=== PATIENT | female | born 1975 | race Caucasian/White ===

== ENCOUNTER 2025-06-18 10:56 | Outpatient (AMB) | payer OTHER, SELFPAY ==
--- NOTE | 2025-06-18 10:59 | MHC.PC.OV ---
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 screenings. Below are screening guidelines for women ages 18 to 39. BLOOD PRESSURE SCREENING Your blood pressure should be checked at least once every 3 to 5 years if: Your blood pressure is in the normal range (top number less than 120 mm Hg and bottom number less than 80 mm Hg) You don't have risk factors for high blood pressure Ask your provider if you need your blood pressure checked more often if: The top number is 120 to 129 mm Hg or the bottom number is 70 to 79 mm Hg You have diabetes, heart disease, kidney problems, are overweight, or have certain other health conditions You have a first-degree relative with high blood pressure You are Black You had high blood pressure during a If the top number is 130 mm Hg or greater or the bottom number is 80 mm Hg or greater, this is considered stage 1 hypertension. Schedule an appointment with your provider to learn how you can reduce your blood pressure. Watch for blood pressure screenings in your area. Ask your provider if you can stop in to have your blood pressure checked. BREAST CANCER SCREENING Experts do not agree about the benefits of breast self-exams in finding breast cancer or saving lives. Talk to your provider about what is best for you. A screening mammogram is not recommended for most women under age 40. Your provider may discuss and recommend mammograms, MRI scans, or ultrasounds if you have an increased risk for breast cancer, such as: A mother or sister who had breast cancer at a young age (most often starting screening earlier than the age the close relative was diagnosed) You carry a high-risk genetic marker CERVICAL CANCER SCREENING Cervical cancer screening should start at age 21 years unless your provider advises otherwise. After the first test: Women ages 21 through 29 should have a Pap test every 3 years. Exoprts do not agree on whether HPV testing is recommended for this age group. Women ages 30 through 65 should be screened with either a Pap test every 3 years or the HPV test every 5 years or both tests every 5 years (called cotesting ). Women who have been treated for precancer (cervical dysplasia) should continue to have Pap tests for 20 years after treatment or until age 65, whichever is longer. If you have had your uterus and cervix removed (total hysterectomy), and you have not been diagnosed with cervical cancer or precancer (high grade cervical neoplasia), you do not need cervical cancer screening. CHOLESTEROL SCREENING Cholesterol screening should begin at: Age 45 for women with no known risk factors for coronary heart disease Age 20 for women with known risk factors for coronary heart disease Repeat cholesterol screening should take place: Every 5 years for women with normal cholesterol levels More often if changes occur in lifestyle (including weight gain and diet) More often if you have diabetes, heart disease, kidney problems, or certain other conditions DIABETES SCREENING You should be screened for diabetes starting at age 35 and then repeated every 3 years if you have no risk factors for diabetes. Screening may need to start earlier and be repeated more often if you have other risk factors for diabetes, such as: You have a first degree relative with diabetes. You are overweight or have obesity. You have high blood pressure, prediabetes, or a history of heart disease. Screening for diabetes should be done if you are planning to become and you are overweight and have other risk factors such as high blood pressure. DENTAL EXAM Go to the dentist once or twice every year for an exam and cleaning. Your dentist will evaluate if you need more frequent visits. EYE EXAM Have an eye exam every 5 to 10 years before age 40. If you have vision problems, have an eye exam every 2 years or more often if recommended by your provider. You should have an eye exam that includes an examination of your retina (back of your eye) at least every year if you have diabetes. IMMUNIZATIONS Commonly needed vaccines include: Flu shot: get one every year. COVID-19 vaccine: ask your provider what is best for you. Tetanus-diphtheria and acellular pertussis (Tdap) vaccine: have one at or after age 19 as one of your tetanus-diphtheria vaccines if you did not receive it as an adolescent. Tetanus-diphtheria: have a booster (or Tdap) every 10 years. Varicella vaccine: receive 2 doses if you never had chickenpox or the varicella vaccine. Hepatitis B vaccine: receive 2, 3, or 4 doses, depending on your exact circumstances. Measles, mumps, and rubella (MMR) vaccine: receive 1 to 2 doses if you are not already immune to MMR. Your provider can tell you if you are immune. Ask your provider about the human papillomavirus (HPV) vaccine if: You have not received the HPV vaccine in the past You have not completed the full vaccine series (you should catch up on this shot) Ask your provider if you should receive other immunizations if you have certain health problems that increase your risk for some diseases such as pneumonia. INFECTIOUS DISEASE SCREENING Women who are sexually active should be screened for chlamydia and gonorrhea up until age 25. Women 25 years and older should be screened for chlamydia and gonorrhea if at high risk. Screening for hepatitis C: All adults ages 18 to 79 should get a one-time test for hepatitis C. people should be screened at every . Screening for human immunodeficiency virus (HIV): All people ages 15 to 65 should get a one-time test for HIV. Depending on your lifestyle and medical history, you may also need to be screened for infections such as syphilis and HIV, as well as other infections. PHYSICAL EXAM All adults should visit their provider from time to time, even if they are healthy. The purpose of these visits is to: Screen for disease Assess your risk of future medical problems Encourage a healthy lifestyle Update your vaccinations and other preventive care services Maintain a relationship with a provider in case of an illness Your height, weight, and BMI should be checked at every exam. During your exam, your provider may ask you about: Depression and anxiety Diet and exercise Alcohol and tobacco use Safety issues, such as using seat belts, smoke detectors, and intimate partner violence Your medicines and risk for interactions SKIN SELF-EXAM Your provider may check your skin for signs of skin cancer, especially if you're at high risk, such as if you: Have had skin cancer before Have close relatives with skin cancer Have a weakened immune system OTHER SCREENING Talk with your provider about colon cancer screening if you have a strong family history of colon cancer or polyps, or if you have had inflammatory bowel disease or polyps yourself. Routine bone density screening of women under 40 is not recommended.
[2025-06-18 11:05] VITALS: BP 132/72; PULSE 68; RESP 12; TEMP 36.2; O2SAT 100; BMI 21.4
--- OUTSIDE RECORDS SUMMARY | 2025-06-18 12:27 | XMS_ITS | Clinical Summary ---
Author Organization [employer] Address [address] [place] [address] [address] [place] [address] Care Team Providers Care Guest Relations Coordinator Name Role Phone Unavailable Primary Care Provider Unavailabl e Allergies No known active allergies Medications cetirizine (ZyrTEC) 10 MG tablet Take by mouth. Active Social History Tobacco Use Types Packs/Day Years Used Date Smoking Tobacco: Never Smokeless Tobacco: Never Tobacco Cessation:Counseling Given: Not Answered Sex and Gender Information Value Date Recorded Sex Assigned at Male 04/05/2023 11:24 AM EDT Legal Sex Female 11:20 AM EDT Gender Identity Male 04/05/2023 11:24 AM EDT Sexual Orientation Choose not to disclose 2022 11:24 AM EDT Last Filed Vital Signs Vital Sign Reading Time Taken Comments Blood Pressure 124/81 04/18/2023 4:10 PM EDT Pulse 74 04/18/2023 4:10 PM EDT Temperature - - Respiratory Rate - - Oxygen Saturation - - Inhaled Oxygen Concentration - - Weight - - Height - - Body Mass Index - - Plan of Treatment Health Maintenance Due Date Last Done Comments CT Colonography 1973 Colonoscopy 1973 Colorectal Cancer Screening 1973 Depression Screening 1973 FIT DNA/Cologuard 1973 FIT 1973 FOBT 1973 HIV Screening 1973 Lipid Panel 1973 SDOH Screening 1973 Sigmoidoscopy 1973 Disability Screening 1973 Alcohol/Substance Use Screening 1985 Family Planning (PISQ) 1988 Hepatitis C Screening 1991 Hepatitis B Vaccines (1 of 3 - 19+ 3-dose series) 1992 DTaP/Tdap/Td Vaccines (2 - Td or Tdap) 10/31/2022 10/31/2012, 11/17/2006 Pneumococcal Vaccine: 50+ Years (1 of 1 - PCV) 2023 Zoster Vaccines (1 of 2) 2023 Dental Oral Exam 10/18/2023 04/18/2023 Dental Prophylaxis 10/18/2023 04/18/2023 Dental X-Ray: Bitewings 04/19/2024 04/18/2023 Tobacco Screening 08/13/2024 08/13/2023 COVID-19 Vaccine ( season) 2025 07/05/2021, 10/13/2020, 09/15/2020 Influenza Vaccine (#1) 2025 , 08/25/2021, 05/25/2020, Additional history exists Dental X-Ray: Full Mouth 04/19/2026 04/18/2023 RSV Patients and Patients Aged 60 years or older (1 - 1-dose 75+ series) 2048 HIB Vaccines Aged Out No longer eligi ble based on patient's age to complete this topic HPV Vaccines Aged Out No longer eligi ble based on patient's age to complete this topic Hepatitis A Vaccines Aged Out No long er eligible based on patient's age to complete this topic IPV Vaccines Aged Out No longer eligi ble based on patient's age to complete this topic Meningococcal B Vaccine Aged Out No l onger eligible based on patient's age to complete this topic Meningococcal Vaccine Aged Out No steve linette eligible based on patient's age to complete this topic RSV under 20 months Aged Out No longe r eligible based on patient's age to complete this topic Rotavirus Vaccines Aged Out No longer eligible based on patient's age to complete this topic Procedures Procedure Name Priority Date/Time Associated Diagnosis Comments PROPHYLAXIS - ADULT Routine 04/18/2023 4 :00 PM EDT INTRAORAL - COMPLETE SERIES OF RADIOGRAPHIC IMAGES Routine 04/18/2023 4:00 PM EDT COMPREHENSIVE ORAL EVALUATION - NEW OR ESTABLISHED PATIENT Routine 04/18/2023 4:00 PM EDT from Last 3 Months or Most Recently Relevant to Health Maintenance Insurance DENTAL - [employer] PPO DENTAL - [employer]
--- OUTSIDE RECORDS SUMMARY | 2025-06-18 12:27 | XMS_ITS | Clinical Summary ---
Author Organization [facility] Address [address] [place] [address] Phone Care Team Providers Care Boiler Tester Name Role Phone Pcp, Unknown Primary Care Provider Unavailabl e Allergies No known active allergies Medications No known medications Active Problems No known active problems Social History Tobacco Use Types Packs/Day Years Used Date Smoking Tobacco: Never Smokeless Tobacco: Never Education Answer Date Recorded Are you interested in more education? Not on chanelle e 12/22/2022 Are you concerned about learning? Not on file 12/22/2022 No 12/22/2022 No 12/22/2022 Digital Access Answer Date Recorded No 01/13/2023 No 01/13/2023 No 01/13/2023 Reliable internet access at home? Not on file 01/13/2023 Device with a working camera? Not on file Comments Unknown Sex and Gender Information Value Date Recorded Sex Assigned at Not on file Legal Sex Female 5:46 PM EST Gender Identity Not on file Sexual Orientation Not on file Last Filed Vital Signs Vital Sign Reading Time Taken Comments Blood Pressure - - Pulse - - Temperature - - Respiratory Rate - - Oxygen Saturation - - Inhaled Oxygen Concentration - - Weight 65.8 kg (145 lb) 11/17/2021 11:49 AM EDT Height 175.3 cm (5' 9 ) 11/17/2021 11:49 AM EDT Body Mass Index 21.41 11/17/2021 11:49 AM EDT Plan of Treatment Health Maintenance Due Date Last Done Comments LIPID PANEL 1973 DEPRESSION SCREENING 1985 HEPATITIS C SCREENING 1991 HIV ONE-TIME SCREENING (18-6 5 YEARS) 1991 PAP SMEAR 1994 MAMMOGRAM 2013 COLOGUARD 2018 COLONOSCOPY 2018 COLORECTAL CANCER SCREENING 2018 FIT TEST 2018 FOBT 2018 SIGMOIDOSCOPY 2018 VIRTUAL COLONOSCOPY 2018 Adult Td,Tdap Booster 10/31/2022 10/31/2012 , 11/17/2006 PNEUMOCOCCAL VACCINES (50+ years) (1 of 1 - PCV) 2023 ZOSTER VACCINES (1 of 2) 2023 INFLUENZA VACCINE (#1) 2025 , 05/25/2020, 11/21/2012 COVID-19 VACCINE ( - 2024-2 6 season) 2025 07/05/2021, 10/13/2020, 09/15/2020 RSV VACCINE (1 - 1-dose 75+ series) 2048 SMOKING STATUS SCREENING (On ce After 26 Yrs) Completed 11/17/2021 HEPATITIS A VACCINES Aged Out No long er eligible based on patient's age to complete this topic HIB VACCINES Aged Out No longer eligi ble based on patient's age to complete this topic MENINGOCOCCAL VACCINES (ACWY) Aged Out No longer eligible based on patient's age to complete this topic MENINGOCOCCAL VACCINES (B) Aged Out N o longer eligible based on patient's age to complete this topic Medical Devices Not on file Insurance [facility] NAVIGATOR POS PostRankATOR POS [employer] NAVIGATOR POS PostRankATOR POS [facility] [employer] POS PostRankATOR POS Member Subscriber Plan / Payer ([facility] 02/16/2021-Present) Name:Bernadine Sutherland Relation to Subscriber:Spouse Name:SAM SUTHERLAND Date of :1971 (Home) Address: [address] [place] [address] Payer ID:[id number] (NAIC) Type:POS Address: [address] [place] [address] PostRankATOR POS [employer] NAVIGATOR POS [employer] NAVIGATOR POS [employer] COMPENSATION Care Teams Boiler Tester Relationship Specialty Start Date End Date Pcp, Unknown PCP - General 03/07/25 Additional Source Comments The information contained in this document represents components of the legal health record. It is not the complete legal health record.[facility]
--- OUTSIDE RECORDS SUMMARY | 2025-06-18 12:27 | XMS_ITS | Patient Health Record ---
Author Organization [facility] Address [address] [place] [address] Care Team Providers Care Manager Technical Sales Name Role Phone Smitha REDDY, Rani Primary Care Provider Un available Matthew Aquino Unavailable [phone] Allergies Allergen (clinical drug ingredient) Drug/Non Drug Allergy documented on EMR Reaction Allergy Type Onset Date Status latex Unknown Drug Allergy Active Reason For Referral No Information Medications Medication SIG (Take, Route, Fr equency, Duration) Notes Start Date End Date Status Li Active Loratadine Not-Takin g Social History Tobacco Use: Social History Observation Description Date Details (start date - stop date) Never Smoker NA - NA Tobacco Use/Smoking Question Answer Notes Are you a: nonsmoker Additional Findings: Tobacco Non-User Current no n-smoker Tobacco use other than smoking: Question Answer Notes Are you an other tobacco user? No Plan Of Treatment No Information Insurance Providers Payer Name Payer Address Payer Phone Subscriber Number Group Number Insured Name Patient Relationship to Insured Coverage Start Date Coverage End Date [facility] Navigator [address] [place] [phone] [id number] Bernadine Barba Self - patient is the insured Medical (General) History Medical History History ICD Code chicken pox Surgical History Surgery Date(Month/Year) section 2001,2003,2005 jaw surgery tonsillectomy and adenoidectomy
== END 2025-06-18 11:29 | disposition home or self-care (01) ==
LOC: HO.HMCFM 10:57
PROVIDERS: PCP Nurse Practitioner Family; Visit Provider Nurse Practitioner Family
DX: Z00.00 Encounter for general adult medical examination without abnormal findings (principal); J30.2 Other seasonal allergic rhinitis; N95.1 Menopausal and female climacteric states; L03.012 Cellulitis of left finger; S60.945A Unspecified superficial injury of left ring finger, initial encounter; W26.8XXA Contact with other sharp object(s), not elsewhere classified, initial encounter; Y92.019 Unspecified place in single-family (private) house as the place of occurrence of the external cause; Z97.5 Presence of (intrauterine) contraceptive device; Z28.21 Immunization not carried out because of patient refusal; Z81.8 Family history of other mental and behavioral disorders

== ENCOUNTER → 2025-06-18 10:56 | Outpatient (BNVA) | payer OTHER, SELFPAY | PROVIDERS: PCP Nurse Practitioner Family; Visit Provider Nurse Practitioner Family | DX: Z00.00 Encounter for general adult medical examination without abnormal findings (principal); J30.2 Other seasonal allergic rhinitis; L03.012 Cellulitis of left finger; N95.1 Menopausal and female climacteric states; Z81.8 Family history of other mental and behavioral disorders; Z28.21 Immunization not carried out because of patient refusal; Z76.89 Persons encountering health services in other specified circumstances; Z97.5 Presence of (intrauterine) contraceptive device; Z79.899 Other long term (current) drug therapy | CPT/HCPCS: 96127 ==

== ENCOUNTER 2025-08-17 08:14 | Outpatient (AMB) | payer OTHER, SELFPAY ==
[2025-08-17 08:15] VITALS: BMI 20.8
--- NOTE | 2025-08-17 08:15 | MHC.OFFVIS ---
Vital Signs 08/17/25 08:15 Height 5 ft 9 in Weight 141 lb BMI 20.8 Intake Visit Reasons: Rt foot Bunion Intake Note: xenia is a 49 year old female who present s today as a new patient for an evaluation of her right foot bunion. Patient reports pain on the MTP hallux joint and her second and third toes as well. She has tried a bunion sleeve and toe spacers years ago and has found no relief for her symptoms. No imaging in patients chart Allergies No Known Allergies Allergy (Verified 08/17/25 08:15) HPI Comments Details: The patient is a 49 year old female with a past medical history as seen below presenting for evaluation of a painful bunion to the right foot. She has had the bunion for years but reports it has become worse over the last six months, with increased rotation and discomfort affecting her other toes. She states she has noted crossing of her hallux and 2nd toe. The pain is primarily present with weight-bearing, is localized to the 1st MPJ, and has limited her ability to run or use the treadmill. In the past, the patient has used bunion sleeves and toe separators. She typically wears sneakers to avoid aggravating the condition and takes ibuprofen for pain. She experiences soreness in the morning, which resolves within the first hour after she gets up and moves around. She reports a secondary issue with her left great toe, stemming from an injury about 12 years ago. Since the injury, the toenail periodically becomes loose or lost following minor trauma and appears yellow. The patient has no history of previous foot x-rays. She has an allergy to latex which causes a rash but is not a true allergy, and she has no known drug allergies. She denies any other pedal concerns. [facility] Medical History (Updated 08/17/25 @ 08:26 by Lilia Acosta DPM) Onychomycosis Pain in right foot Hammertoe of right foot Hallux valgus of right foot Hx of mammogram (~2024) Surgical History (Updated 06/18/25 @ 11:09 by Tania Cadet MA) Previous section Family History (Updated 06/18/25 @ 11:43 by Tania Cadet MA) Mother HTN (hypertension) Father HTN (hypertension) High cholesterol Mental health disorder Maternal Grandmother Diabetes Social History (Updated 06/18/25 @ 11:08 by Tania Cadet MA) Household Members: Spouse and Children Both parents involved: No Caregiver staying overnight: No Housing: House Are you a primary elderly caregiver to a significant other at home: Yes Do you presently have visiting nurse or other home services: No 75 years or older and lives alone: No Alcohol intake: current Alcohol intake frequency: a few times a month Patient Tobacco Use Status: Never used Tobacco e-Cigarette/Vaping Use: Never Used Second Hand Smoke Exposure: No service: No 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 - Reports pain radiating to the second and third toes and morning soreness that improves with activity. - Neurological: Denies numbness or tingling in the toes. - Integumentary: Reports a history of trauma to the left hallucal nail 12 years ago, with recurrent partial nail loss and discoloration. - Allergic/Immunologic: Denies medication allergies. - Reports a rash with latex exposure, but denies a true allergy. All systems reviewed & are unremarkable except as noted in HPI and below Physical Exam Vital Signs: BMI result Body Mass Index 20.8 Extrem Other: Bilateral lower extremity focused physical exam: Derm: Thickened, discolored, and dystrophic nails noted to toes 1 through 5 on the left, worse to the left hallucal nail. Remaining toenails within normal limits. No open lesions abrasions or wounds noted. No maceration or hyperkeratotic lesions noted. No discoloration noted. No clinical signs of infection noted. Skin supple and turgor within normal limits. Vascular: DP/PT pulses palpable. Capillary refill time less than 3 seconds. Temperature gradient warm to warm. Pedal hair diminished. No varicosities noted. Neuro: Protective sensation is grossly intact to light touch. MSK: Tracking HAV noted to the right foot. Pain on palpation to the 1st MPJ along the medial prominence of the right foot. Pain with range of motion of the 1st MPJ without crepitus to the right foot. Hammertoes noted to digits 2nd and 3rd of the right foot. Crossover toes noted to the hallux and 2nd toe of the right foot. Remaining toes nonpainful on palpation and range of motion. Range of motion of the hindfoot and ankles within normal limits. Results Reviewed Results Reviewed: Ordered right foot weightbearing three-view x-rays to be performed prior to next visit. Assessment & Plan Assessment & Plan (1) Hallux valgus of right foot: Code(s): M20.11 - Hallux valgus (acquired), right foot Category: Medical (2) Hammertoe of right foot: Code(s): M20.41 - Other hammer toe(s) (acquired), right foot Category: Medical (3) Pain in right foot: Code(s): M79.671 - Pain in right foot Category: Medical (4) Onychomycosis: Code(s): B35.1 - Tinea unguium Category: Medical Plan Patient was informed and verbally consented to the use of an ambient scribe for clinic note documentation during this visit. I discussed with the patient that her right foot bunion is the cause of her pain, which has been worsening. We reviewed that she has already tried conservative measures such as special footwear, bunion sleeves, and toe separators. I explained that surgery is the only definitive corrective treatment for a bunion. For nonsurgical pain management, I discussed the options of a cortisone injection or the lidocaine patches I prescribed. Regarding her left toenail, I discussed treatment for suspected fungal infection, including a topical medication (ciclopirox) which takes about a year to show full effect, and an oral medication (terbinafine), noting the need for liver function monitoring with the latter. I have ordered x-rays and scheduled her to return in three weeks to review the results and decide on the best course of action. - Ordered right foot x-rays to be performed prior to next visit. - Nonsurgical versus Surgical options for the bunion were discussed. - Prescribed lidocaine patches to be applied to the right foot. - Prescribed ciclopirox to be applied to the left toenails. Advised patient to file/buff the dorsal aspect of the nails prior to daily application. If pain persists we will consider cortisone injection. RTC in 3 weeks. Orders: Orders XR foot RT min 3V 12/30/25 M20.11 - Hallux valgus (acquired), right foot, M20.41 - Other hammer toe(s) (acquired), right foot, M79.671 - Pain in right foot Medications: New lidocaine 5% leave on most painful area for up to 12 hrs 1 patch topical DAILY 30 ea 0RF M20.11 - Hallux valgus (acquired), right foot, M20.41 - Other hammer toe(s) (acquired), right foot, M79.671 - Pain in right foot ciclopirox 8% 1 appl topical BEDTIME 6.6 mL 1RF 4 weeks B35.1 - Tinea unguium Coding Level of Care Code New Pt Level 4 (94704) Diagnoses Hallux valgus of right foot M20.11 Hammertoe of right foot M20.41 Pain in right foot M79.671 Onychomycosis B35.1 Time Spent (min) 48
--- OUTSIDE RECORDS SUMMARY | 2025-08-17 09:46 | XMS_ITS | Clinical Summary ---
Author Organization [employer] Address [address] [place] [address] [address] [place] [address] Care Team Providers Care Director Cost Name Role Phone Unavailable Primary Care Provider [...]
--- OUTSIDE RECORDS SUMMARY | 2025-08-17 09:46 | XMS_ITS | Patient Health Record ---
Author Organization [facility] Address [address] [place] [address] Care Team Providers Care Diamond Die Driller Name Role Phone Smitha REDDY, Rani Primary Care Provider Un available Matthew Aquino Unavailable [phone] Allergies Allergen (clinical drug ingredient) Drug/Non Drug [...] Insured Coverage Start Date Coverage End Date [facility] Navigator [address] [place] [phone] [id number] Bernadine Barba Self - patient is the insured Medical (General) History Medical History History ICD Code chicken pox Surgical History Surgery Date(Month/Year) section 2001,2003,2005 jaw surgery tonsillectomy and adenoidectomy
--- OUTSIDE RECORDS SUMMARY | 2025-08-17 09:46 | XMS_ITS | Clinical Summary ---
Author Organization [facility] Address [address] [place] [address] Phone Care Team Providers Care Paradichlorobenzene Tender Name Role Phone Pcp, Unknown Primary Care [...] topic Medical Devices Not on file Insurance [facility] NAVIGATOR POS GenePeeksATOR POS [employer] NAVIGATOR POS GenePeeksATOR POS [employer] POS GenePeeksATOR POS [employer] POS [employer] NAVIGATOR POS [employer] NAVIGATOR POS WORKERS COMPENSATION Care Teams Paradichlorobenzene Tender Relationship Specialty Start Date End Date Pcp, Unknown PCP - General 03/07/25 Additional Source Comments The information contained in this document represents components of the legal health record. It is not the complete legal health record.[facility]
== END 2025-08-17 08:26 | disposition home or self-care (01) ==
LOC: HO.HPODS 08:14
PROVIDERS: PCP Nurse Practitioner Family; Visit Provider Student in an Organized Health Care Education/Training Program
DX: M20.11 Hallux valgus (acquired), right foot (principal); M20.41 Other hammer toe(s) (acquired), right foot; M79.671 Pain in right foot; B35.1 Tinea unguium
CPT/HCPCS: 99204